=== PATIENT | male | born 1995 | race Caucasian/White ===

== ENCOUNTER 2020-11-25 19:17 | Emergency (ER) | payer OTHER ==
[~2020-11-25] VITALS: Ht 190.5 cm; Wt 79.0 kg
[2020-11-25 19:44] VITALS: BP 118/86
[2020-11-25 21:11] LABS: BASOPHILS % (AUTO) 0 % (0-1); EOSINOPHILS % (AUTO) 1 % (1-7); LYMPHOCYTES % (AUTO) 13 % (22-44); MEAN CORPUSCULAR HGB CONC 34.7 g/dL (33.2-36.2); MEAN PLATELET VOLUME 10.5 fL (7.4-10.4); MONOCYTES % (AUTO) 8 % (2-9); NEUTROPHILS % (AUTO) 78 % (42-75); PLATELET COUNT 155 x10^3/uL (130-400)
[2020-11-25 21:12] LABS: ALBUMIN 4.9 g/dL (3.4-5.0); ANION GAP 6 mmol/L (5-15); CHLORIDE 105 mmol/L (98-107)
[2020-11-25 21:17] LABS: ALANINE AMINOTRANSFERASE 32 U/L (12-78); ALKALINE PHOSPHATASE 74 U/L (45-117); CREATININE 1.03 mg/dL (0.7-1.3); TOTAL PROTEIN 8.6 g/dL (6.4-8.2)
--- NOTE | 2020-11-26 03:55 | NUR ---
PT SEEN BY MD, ALL RESULTS ARE BACK, AND PT TBDC
--- NOTE | 2020-11-26 04:06 | NUR ---
F/U AND D/C INSTRUCTIONS WITH FOLLOW UP CARE TO NEUROLOGY PROVIDED TO PT AND HE V/U.
== END 2020-11-26 04:08 | disposition home or self-care (01) ==
LOC: ED 20:00
DX: R20.2 Paresthesia of skin (principal); R06.02 Shortness of breath; R42 Dizziness and giddiness; F17.200 Nicotine dependence, unspecified, uncomplicated
CPT/HCPCS: 36415; 71045; 80053; 80320; 85025; 93005; 99285; G0480